=== PATIENT | male | born 1995 | race Caucasian/White ===

== ENCOUNTER 2019-04-15 13:34 | Emergency (ER) | payer SELFPAY, MEDICAID ==
[2019-04-15 14:29] LABS: URINE BLOOD (Dip) POC Trace-lysed (NEGATIVE); URINE GLUCOSE (Dip) POC Negative (NEGATIVE); URINE KETONES (Dip) POC Negative (NEGATIVE); URINE LEUKOCYTE EST (Dip) POC Negative (NEGATIVE); URINE NITRITE (Dip) POC Negative (NEGATIVE); URINE TOTAL PROTEIN POC Negative (NEGATIVE)
[2019-04-15 14:29] LABS: URINE PH (Dip) POC 5.5 (5.0-8.5)
== END 2019-04-15 15:36 | disposition home or self-care (01) ==
LOC: FTE 13:34
DX: L30.9 Dermatitis, unspecified (principal); F41.9 Anxiety disorder, unspecified
CPT/HCPCS: 81003; 93005; 99283-25

== ENCOUNTER 2019-06-23 22:50 | Emergency (ER) | payer OTHER ==
[2019-06-24 00:41] LABS: ADD MAN DIFF? NO
[2019-06-24 00:42] LABS: BASOPHILS % 0.7 % (0.0-2.0); EOSINOPHILS # 0.1 10^3/ul (0.0-0.5); EOSINOPHILS % 1.4 % (0.0-7.0); HEMATOCRIT 43.2 % (42.0-52.0); HEMOGLOBIN 14.1 g/dl (14.0-18.0); LYMPHOCYTES # 1.7 10^3/ul (0.8-2.9); LYMPHOCYTES % 39.5 % (15.0-51.0); MEAN CORPUSCULAR HEMOGLOBIN 27.5 pg (29.0-33.0); MEAN CORPUSCULAR HGB CONC 32.6 g/dl (32.0-37.0); MEAN CORPUSCULAR VOLUME 84.4 fl (82.0-101.0); MEAN PLATELET VOLUME 9.4 fl (7.4-10.4); MONOCYTE # 0.5 10^3/ul (0.3-0.9); MONOCYTES % 12.2 % (0.0-11.0); PLATELET COUNT 222 10^3/UL (140-415); RED BLOOD COUNT 5.12 10^6/ul (4.70-6.10); RED CELL DISTRIBUTION WIDTH 12.4 % (11.5-14.5)
[2019-06-24 00:42] LABS: WHITE BLOOD COUNT 4.4 10^3/ul (4.8-10.8)
[2019-06-24] MEDS: ASPIRIN 325 MG TAB PO (01:07)
[2019-06-24 01:17] LABS: ANION GAP 6 (5-13); BLOOD UREA NITROGEN 19 mg/dl (7-20); CALCIUM 10.1 mg/dl (8.4-10.2); CARBON DIOXIDE 31 mmol/L (21-31); CHLORIDE 99 mmol/L (97-110); CREATININE 1.06 mg/dl (0.61-1.24); Estimated GFR > 60 mL/min (>60); GLUCOSE 95 mg/dl (70-220); POTASSIUM 4.1 mmol/L (3.5-5.1); SODIUM 136 mmol/L (135-144)
[2019-06-24 01:28] LABS: TROPONIN-I < 0.012 ng/ml (0.000-0.120)
== END 2019-06-24 01:53 | disposition home or self-care (01) ==
LOC: FTE 22:50
DX: R07.9 Chest pain, unspecified (principal)
CPT/HCPCS: 71045; 80048; 84484; 85025; 93005; 99285-25